=== PATIENT | female | born 1960 ===

== ENCOUNTER → 2018-08-03 | Outpatient (CLI) | payer SELFPAY ==
--- NOTE | 2018-08-03 13:29 | Diagnostic Imaging Report ---
INDICATION: Low back pain. TIME OF EXAM: 01:20 p.m. FINDINGS: Three views of the lumbar spine show normal curvature and alignment. Vertebral body heights are maintained. No acute compression fracture is seen. Disc spaces are fairly well maintained. Surgical clips in the gallbladder fossa are seen. IMPRESSION: No acute bony abnormality is detected. Dictated by: Dictated on workstation # [id number]
== END ==
LOC: RAD 12:36
PROVIDERS: ATTEND Chiropractor
DX: M99.03 Segmental and somatic dysfunction of lumbar region (principal); M99.02 Segmental and somatic dysfunction of thoracic region; M99.04 Segmental and somatic dysfunction of sacral region; R29.3 Abnormal posture
CPT/HCPCS: 72100

== ENCOUNTER → 2019-03-05 | Outpatient (CLI) | payer OTHER ==
--- NOTE | 2019-03-05 14:43 | Diagnostic Imaging Report ---
PROCEDURE: MRI lumbar spine. TECHNIQUE: Multiplanar, multisequence MRI of the lumbar spine was performed without contrast. INDICATION: Low back pain as well as right hip and buttock pain. COMPARISON: No prior studies are available for comparison. FINDINGS: There is normal lumbar lordotic curvature. Minimal anterolisthesis of L5 on S1 is noted. Vertebral body heights are maintained. The marrow signal intensity is unremarkable. No geographic marrow lesion or acute compression fracture is identified. There is some mild generalized desiccation of the disc, however, no significant disc space narrowing is seen. The conus is unremarkable at the L1 level. Study is somewhat compromised due to patient motion. T12-L1: The central canal and neural foramina are widely patent. L1-2: Central canal and neural foramina are widely patent. L2-3: There is minimal ligamentous thickening. The central canal is widely patent. Neural foramina appear patent. L3-4: There is some mild ligamentous thickening. The central canal is widely patent. There appears to be some mild left neural foraminal narrowing. L4-5: There is ligamentous thickening and broad-based disc/osteophyte complex. Central canal remains patent. There is mild bilateral neural foraminal narrowing as well as bilateral lateral recess narrowing. L5-S1: Hypertrophic facet changes are noted. There is ligamentous thickening. The central canal is patent. There is mild bilateral neural foraminal narrowing. Paraspinous tissues are unremarkable. IMPRESSION: Mild lumbar spondylosis and facet arthropathy with mild neural foraminal and lateral recess narrowing described level by level above. No central canal stenosis is identified. No acute compression fracture is identified. Dictated by: Dictated on workstation # [id number]
== END ==
LOC: RAD 13:41
PROVIDERS: ATTEND Chiropractor
DX: M48.061 Spinal stenosis, lumbar region without neurogenic claudication (principal); M46.86 Other specified inflammatory spondylopathies, lumbar region; M47.816 Spondylosis without myelopathy or radiculopathy, lumbar region; M99.73 Connective tissue and disc stenosis of intervertebral foramina of lumbar region; M48.07 Spinal stenosis, lumbosacral region; M46.87 Other specified inflammatory spondylopathies, lumbosacral region
CPT/HCPCS: 72148